=== PATIENT | female | born 1955 | race Caucasian/White ===

== ENCOUNTER 2022-03-25 08:42 | Observation (INO) ==
--- NOTE | 2022-03-25 08:51 | Emergency Department Note ---
Impression & Plan Multiple fractures of ribs of left side, Hemothorax on left Admit to general surgery ED Provider Note NAME: CARINA VOGEL AGE: 66 SEX: F ARRIVES VIA: Walk-In INFORMANT: Patient ED PROVIDER(S): Moraima Lane DO CHIEF COMPLAINT: Fall PLAN: Disposition: Admit to general surgery Condition: Stable MEDICAL DECISION MAKING: This is a 66-year-old female patient who fell 2 steps off of a stepladder onto a toilet bowl landing on her left lateral chest wall. The patient denies striking head or lose consciousness. She is complaining of left chest wall. Triage Nursing notes reviewed and agree with them. Vital Signs: reviewed and unremarkable Differential diagnosis: Rib fractures, chest wall contusion, pneumothorax ER treatment provided: IV fentanyl IV Zofran x2 IV Dilaudid x2 Diagnostics interpreted by me: ECG: None Cardiac Monitoring: None Laboratory studies: See below Imaging studies: As per radiology CT chest: See radiology report CT abdomen pelvis: See radiology report HPI: 66/F arrives for evaluation of fall. The patient presents to the emergency department complaining of left-sided chest wall pain after falling from a stepstool. She had climbed up 2 steps on a stepstool and fell onto her left chest wall landing on a toilet bowl. She did not strike her head or lose consciousness. She immediately felt severe pain in her left mid axillary line in the mid left chest wall and felt somewhat lightheaded. ROS: See above HPI for pertinent positives & negatives. A total of 10 systems reviewed and were otherwise negative. PAST MEDICAL HISTORY:Anxiety PAST SURGICAL HISTORY:Previous orthopedic surgery on her knee. FAMILY HISTORY:See Below SOCIAL HISTORY:Patient recently moved into this home HOME MEDICATIONS:Loratadine ALLERGIES:See Below VITALS:See Below PHYSICAL EXAMINATION: HEENT: Head - normocephalic and atraumatic. Pupils are equal, round, and reactive to light. Extraocular eye muscles are intact and sclera are anicteric. Nose - moist nasal mucosa without evidence of trauma or discharge. Mouth - moist buccal mucosa with no trauma to the teeth or signs of malocclusion. Neck: The neck is supple and there is no pain to palpation over the posterior cervical spine and no obvious step-offs or deformities. There is no JVD or tracheal deviation. Chest: There are no signs of deformities, contusions or abrasions to the chest wall. There is no obvious crepitus or paradoxical chest rise. The patient has exquisite tenderness to palpation in the left mid axillary line in the mid left chest. Heart: Regular, rate, and rhythm. There is a normal S1 and S2 with no murmurs, clicks, or gallops appreciated. Lungs: Clear to auscultation bilaterally with no wheezes, rales, or rhonchi. Abdomen: Soft, completely nontender, nondistended, with good bowel sounds. There is no sign of trauma such as contusions, abrasions or penetrations. There are no palpable pulsatile masses or hepatosplenomegaly. There is no guarding, rigidity, or rebound noted. Pelvis: Stable to rock and compression. Extremities: No obvious trauma, deformities, contusions, or edema. There are easily palpable peripheral pulses. Neuro: The patient is awake and alert and easily able to follow commands. Muscle strength is 5 out of 5 in all 4 extremities. Otherwise, neuro exam is unremarkable. Back: The entire thoracic, lumbar, and sacral spine were palpated. There are no obvious step-offs or deformities noted. There are no obvious signs of trauma such as contusions abrasions penetrations noted to the back. Skin: The patient does have some areas of redness over the right shoulder and right mid back which are skin lesions that are old. ED COURSE: Times/Reassessments: 0850: The patient was evaluated in room B2. A complete history and physical was performed. An IV lock was initiated and the patient was given a dose of IV fentanyl and IV Zofran. She will go for CT scan of her chest. I reviewed these findings with the patient. I discussed these findings with Dr. Linder from general surgery and he recommended CT scan of the abdomen/pelvis. She required additional pain medication and was given IV Dilaudid. She went back for CT scan of the abdomen/pelvis which was unremarkable. Dr. Linder will admit the patient to the hospital. O2 saturations remained stable. The patient again complained of discomfort in the left chest wall and was given additional doses of IV Dilaudid and IV Zofran. Moraima Lane DO Past Med/Surg History Medical History (Updated 03/26/22 @ 12:[address] DO) Hemothorax on left Multiple fractures of ribs of left side Social History Smoking Status: Never smoker Second Hand Exposure: No; Hx Alcohol Use: Yes Alcohol type: wine Hx Substance Use: No Preferred Language: Qatari Communication Ability: Effective Heel Brusher Required: No Beliefs That Will Affect Care: Mandaen Current Living Situation: Spouse Feels Safe at Home: Yes Assistive Devices: Glasses Allergies Allergies Allergy/AdvReac Type Severity Reaction Status Date / Time morphine AdvReac Vomiting Verified 03/25/22 15:53 Home Meds Previous Rx's Medication Instructions Recorded acetaminophen 325 mg tablet 650 mg PO Q6H #30 tabs 03/26/22 gabapentin 100 mg capsule 100 mg PO BID #60 caps 03/26/22 lidocaine 5 % topical patch 1 patch transdermal QAM #15 ea 03/26/22 oxycodone 5 mg tablet 5 mg PO Q4H PRN pain #15 tabs 03/26/22 Results & Data (ED) Vital Signs Vital Signs - 24 hr 03/25/22 14:00 03/25/22 14:27 Temperature 36.8 C 36.8 C Temperature Source Oral Oral Pulse Rate [Finger] 70 64 Pulse Rhythm [Finger] Regular Respiratory Rate 16 18 Blood Pressure [Right Arm] 133/82 144/76 H Blood Pressure Mean [Right Arm] 99 98 Pulse Oximetry 99 99 Laboratory Data Result diagrams: 03/26/22 05:54 03/26/22 05:54 Lab Results 03/25/22 03/25/22 03/25/22 Range/Units 09:34 10:52 11:26 WBC 7.96 (4.8-10.8) K/ul RBC 4.01 (3.93-5.22) M/uL Hgb 11.9 L (12.0-16.0) g/dl Hct 36.3 (34.1-44.9) % MCV 90.5 (80.0-100.0) fL MCH 29.7 (25.0-34.0) pg MCHC 32.8 (32.0-36.0) g/dL RDW Std Deviation 46.5 H (36.4-46.3) fL RDW Coeff of Cristian 13.9 (11.5-14.5) % Plt Count 225 (130-400) K/uL MPV 10.3 (9.4-12.3) fL Immature Gran % (Auto) 0.3 % Neut % (Auto) 79.5 % Lymph % (Auto) 13.1 % [place] % (Auto) 6.2 % Eos % (Auto) 0.5 % Baso % (Auto) 0.4 % Neut # (Auto) 6.34 (1.4-6.5) K/uL Lymph # (Auto) 1.04 L (1.2-3.4) K/uL [place] # (Auto) 0.49 (0.24-0.82) K/uL Eos # (Auto) 0.04 (0-0.50) K/uL Baso # (Auto) 0.03 (0-0.2) K/uL Immature Gran # (Auto) 0.02 (0.00-0.02) K/uL Urine Color Yellow Urine Appearance Clear (Clear) Urine pH 5.5 (4.5-7.5) Ur Specific [place] 1.022 (1.000-1.030) Urine Protein Negative (Negative) Urine Glucose (UA) Negative (Negative) Urine Ketones Negative (Negative) Urine Blood Negative (Negative) Urine Nitrite Negative (Negative) Urine Bilirubin Negative (Negative) Urine Urobilinogen Negative (Negative) Ur Leukocyte Esterase Negative (Negative) SARS-CoV-2, RNA, NAAT NEGATIVE (NEGATIVE) Administered Medications Discontinued Medications Acetaminophen (Acetaminophen 325 Mg Tab) 650 mg PO Q6H TABITHA Stop: 04/24/22 14:57 Last Admin: 03/26/22 08:05 Dose: 650 mg Documented By: Admin: 03/26/22 03:18 Dose: 650 mg Documented By: Admin: 03/25/22 19:36 Dose: 650 mg Documented By: Admin: 03/25/22 15:23 Dose: 650 mg Documented By: KEE Fentanyl Citrate (Fentanyl Citrate 100 Mcg/2 Ml Vial) 50 mcg IV NOW STA Stop: 03/25/22 09:06 Last Admin: 03/25/22 09:27 Dose: 50 mcg Documented By: ADILIA Gabapentin (Gabapentin 100 Mg Cap) 100 mg PO BID TABITHA Stop: 04/24/22 15:29 Last Admin: 03/26/22 08:05 Dose: 100 mg Documented By: Admin: 03/25/22 19:38 Dose: 100 mg Documented By: Admin: 03/25/22 16:20 Dose: 100 mg Documented By: KEE Hydromorphone HCl (Hydromorphone Inj 0.5 Mg/0.5 Ml Syr) 0.5 mg IV NOW STA Stop: 03/25/22 10:50 Last Admin: 03/25/22 10:57 Dose: 0.5 mg Documented By: ADILIA Hydromorphone HCl (Hydromorphone Inj 1 Mg/Ml Syringe) 1 mg IV NOW STA Stop: 03/25/22 12:15 Last Admin: 03/25/22 12:19 Dose: 1 mg Documented By: ADILIA Ioversol (Ioversol 350 Mg 100ml Prefilled Syringe) 94 ml IV ONCE ONE Stop: 03/25/22 09:46 Last Admin: 03/25/22 09:45 Dose: 94 ml Documented By: COURTNEY Ioversol (Ioversol 350 Mg 100ml Prefilled Syringe) 94 ml IV ONCE ONE Stop: 03/25/22 11:40 Last Admin: 03/25/22 11:39 Dose: 94 ml Documented By: COURTNEY(2) Ketorolac Tromethamine (Ketorolac Tromethamine 15 Mg/Ml Vial) 15 mg IV Q6H TABITHA Stop: 03/30/22 15:29 Last Admin: 03/26/22 08:06 Dose: 15 mg Documented By: Admin: 03/26/22 03:17 Dose: 15 mg Documented By: Admin: 03/25/22 21:33 Dose: 15 mg Documented By: Admin: 03/25/22 15:22 Dose: 15 mg Documented By: KEE Lidocaine (Lidocaine 5% 1 Patch) 1 patch TD QAM TABITHA Stop: 04/24/22 14:57 Last Admin: 03/26/22 08:07 Dose: 1 patch Documented By: Admin: 03/25/22 16:21 Dose: 1 patch Documented By: KEE Miscellaneous (Remove Lidoderm Patch) 1 each N/A DAILY@2100 TABITHA Stop: 04/24/22 20:59 Last Admin: 03/25/22 19:39 Dose: 1 each Documented By: SALVATORE Ondansetron HCl (Ondansetron Inj 2 Mg/Ml 2 Ml Vial) 4 mg IV NOW STA Stop: 03/25/22 09:06 Last Admin: 03/25/22 09:27 Dose: 4 mg Documented By: ADILIA Ondansetron HCl (Ondansetron Inj 2 Mg/Ml 2 Ml Vial) 4 mg IV NOW STA Stop: 03/25/22 12:39 Last Admin: 03/25/22 12:43 Dose: 4 mg Documented By: JEM Ondansetron HCl (Ondansetron Inj 2 Mg/Ml 2 Ml Vial) 4 mg IV Q4H PRN PRN Reason: Nausea And Vomiting Stop: 04/24/22 14:57 Last Admin: 03/25/22 15:22 Dose: 4 mg Documented By: KEE Discharge Plan Visit Data Chief Complaint: Chest/Rib Injury Stated Complaint: RIB PAIN ED Provider: Moraima Lane Discharge Problem: Multiple fractures of ribs of left side, Hemothorax on left Patient Disposition: Admitted As Inpatient Condition: Good Discharge Instructions Interventions: ED Discharge Assessment Last Done: 03/25/22 14:29 : Multiple fractures of ribs of left side Qualifiers: Encounter type: initial encounter Fracture type: closed Qualified Code(s): S22.42XA - Multiple fractures of ribs, left side, initial encounter for closed fracture
[2022-03-25] MEDS ORDERED: fentaNYL citrate 100 MCG/2 ML VIAL IV STA (09:05)
[2022-03-25] MEDS ORDERED: ONDANSETRON INJ 2 MG/ML 2 ML VIAL IV STA ×2 (09:05→12:38)
[2022-03-25] MEDS ORDERED: IOVERSOL 350 MG 100mL Prefilled Syringe IV ONE ×2 (09:45→11:39)
[2022-03-25 09:51] LABS: Appearance Urine Clear (Clear); Bilirubin Urine Negative (Negative); Blood Urine Negative (Negative); Color Urine Yellow; Glucose Urine UA Negative (Negative); Ketones Urine Negative (Negative); Leukocyte Esterase Urine Negative (Negative); Nitrite Urine Negative (Negative); Protein Urine Negative (Negative); Specific Gravity Urine 1.022 (1.000-1.030); Urobilinogen Urine Negative (Negative); pH Urine 5.5 (4.5-7.5)
--- NOTE | 2022-03-25 10:06 | CT Scan Report ---
CT SCAN OF THE CHEST WITH IV CONTRAST CLINICAL HISTORY: Fall. Left-sided chest wall injury. COMPARISON STUDY: No priors. TECHNIQUE: Following the IV administration of 94 cc of Optiray 350, CT scan of the thorax was perform ed from the thoracic inlet to the upper abdomen. Images are reviewed in the axial, sagittal, and mercedes nal planes. IV contrast was administered without complication. A dose lowering technique was utilize d adhering to the principles of ALARA. CT DOSE: 238.87 mGy.cm FINDINGS: Thyroid: Mildly enlarged and heterogeneous. Thoracic aorta: The thoracic aorta is normal in caliber and demonstrates standard 3-vessel arch anato my. No dissection is seen. Pulmonary vasculature: The pulmonary trunk is normal in caliber. There are no filling defects identif ied in the central pulmonary vessels to indicate pulmonary embolus. Note that this examination was no t protocoled for evaluation of the pulmonary arteries. Heart: The heart is top normal in size and without pericardial effusion. Lungs and pleural spaces: There is trace pneumothorax at the left lung base. No airspace consolidatio n or pneumothorax is seen. The trachea and central airways are clear. Dependent atelectasis is noted bilaterally. Mediastinum: There is no mediastinal lymphadenopathy. Hanny: Clear. Axillae: There are shotty axillary lymph nodes. Upper abdomen: Partially visualized upper abdominal viscera is within normal limits. Skeletal structures: The skeletal structures are osteopenic. There are acute left anterior 6th throug h 8th rib fractures. The 7th rib fracture is displaced. The remainder of the bony thorax appears inta ct. Mild spondylotic change is noted in the thoracic spine. Arthritic change is seen in the shoulders . No lytic or blastic bony lesions are seen. IMPRESSION: 1. There are acute left anterior rib fractures as above. 2. Trace hemothorax is seen at the left lung base. 3. There is no airspace consolidation or pneumothorax. 4. Additional findings as above. ACT 112: Negative or not required by law. Electronically signed by: Sam Olivo M.D. 03/25/2022 10:03 AM
[2022-03-25] MEDS ORDERED: HYDROmorphone INJ 0.5 MG/0.5 ML SYR IV STA (10:49)
[2022-03-25 10:59] LABS: Basophils # (auto) 0.03 K/uL (0-0.2); Basophils % (auto) 0.4 %; Eosinophils # (auto) 0.04 K/uL (0-0.50); Eosinophils % (auto) 0.5 %; Hematocrit (blood only) 36.3 % (34.1-44.9); Hemoglobin 11.9 g/dl (12.0-16.0); Immature Granulocytes # (auto) 0.02 K/uL (0.00-0.02); Immature Granulocytes % (auto) 0.3 %; Lymphocytes # (auto) 1.04 K/uL (1.2-3.4); Lymphocytes % (auto) 13.1 %; Mean Corpuscular Hemoglobin 29.7 pg (25.0-34.0); Mean Corpuscular Hgb Conc 32.8 g/dL (32.0-36.0); Mean Corpuscular Volume 90.5 fL (80.0-100.0); Mean Platelet Volume 10.3 fL (9.4-12.3); Monocytes # (auto) 0.49 K/uL (0.24-0.82); Monocytes % (auto) 6.2 %; Neutrophils # (auto) 6.34 K/uL (1.4-6.5); Neutrophils % (auto) 79.5 %; Platelet Count 225 K/uL (130-400); RDW Coefficient of Variation 13.9 % (11.5-14.5); RDW Standard Deviation 46.5 fL (36.4-46.3); Red Blood Count 4.01 M/uL (3.93-5.22); White Blood Count 7.96 K/ul (4.8-10.8)
--- NOTE | 2022-03-25 11:57 | CT Scan Report ---
CT SCAN OF THE ABDOMEN AND PELVIS WITH IV CONTRAST CLINICAL HISTORY: Fall. Left-sided chest injury. COMPARISON STUDY: Chest CT performed the same day 03/25/2022. TECHNIQUE: Following the IV administration of 94 cc of Optiray 350, CT scan of the abdomen and pelvi s is performed from the lung bases to the proximal femora. Images are reviewed in the axial, sagittal , and coronal planes. IV contrast was administered without complication. A dose lowering technique wa s utilized adhering to the principles of ALARA. CT DOSE: 311.66 mGy.cm FINDINGS: Lung bases: The heart is normal in size and without pericardial effusion. Trace hemothorax is noted a t the left lung base. There is no basilar consolidation or pneumothorax. Liver: The contrast-enhanced liver is normal in size, contour, and attenuation. There is no intrahepa tic biliary ductal dilatation. The hepatic veins and portal veins are patent. Gallbladder: Unremarkable. Spleen: Normal in size and attenuation. Pancreas: Unremarkable. Adrenal glands: Unremarkable. Kidneys: The contrast enhanced kidneys are normal in size and without hydronephrosis. The kidneys enh ance an excrete symmetrically. Contrast from today's earlier chest CT fills the renal collecting syst ems and ureters. 2 subcentimeter cortical hypodensities in the right kidney likely represent cysts bu t are too small for definitive characterization. Abdominal vasculature: The abdominal aorta is normal in course and caliber noting mild to moderate at herosclerotic calcification. Bowel: There is moderate diverticulosis of left colon without CT evidence of acute diverticulitis. No bowel obstruction is seen. The appendix is well-visualized and normal. Peritoneum: There is no intraperitoneal free air or abdominal ascites. Lymphadenopathy: None. Pelvic viscera: The bladder is filled with excreted IV contrast and otherwise normal as visualized. T he uterus is surgically absent. No adnexal lesion is seen. Skeletal structures: The skeletal structures are osteopenic. Again seen are acute left anterior 6th t hrough 8th rib fractures. The 7th rib fracture is displaced. The lumbosacral spine, bony pelvis, and proximal femora appear intact. There is mild lumbosacral spondylosis. No lytic or blastic lesions are seen. IMPRESSION: 1. There is no evidence of solid organ injury in the abdomen or pelvis. 2. Left anterior rib fractures are again noted and unchanged. 3. Trace hemothorax is again seen at the left lung base. There is no basilar pneumothorax. 4. Colonic diverticulosis without CT evidence of acute diverticulitis. 5. Additional findings as above. ACT 112: Negative or not required by law. Electronically signed by: Sam Olivo M.D. 03/25/2022 11:55 AM
[2022-03-25] MEDS ORDERED: HYDROmorphone INJ 1 MG/ML SYRINGE IV STA (12:14)
--- NOTE | 2022-03-25 12:44 | History & Physical Report ---
Date of Service March 25, 2022 Assessment & Plan (1) Multiple fractures of ribs of left side: Plan: 66-year-old female with left-sided rib fractures following a fall with no other evidence of injury. There is a trace hemothorax though I think this is quite minimal. We will admit for observation. Admit to [facility] with telemetry and continuous pulse ox for observation Scheduled Tylenol, scheduled Toradol IV, lidocaine patch, gabapentin As needed oxycodone and morphine Repeat chest x-ray in the morning I-S every hour If any worsening of her hemothorax or any requirement for plating of ribs or surgery, she would require transfer to the care of a thoracic surgeon Patient may ambulate, diet as tolerated Likely discharge tomorrow (2) Hemothorax on left: History of Present Illness Chief Complaint: Fall, chest pain Primary Care Provider: FAYE HOFFMAN 66-year-old otherwise healthy female recently moved to the area and was setting things up in her house when she fell off a stepladder and had her left lateral chest on the toilet. She is complaining of left-sided pain. No shortness of breath, though it does hurt to take a deep breath or to lay flat. Not on any blood thinners, no loss of consciousness, evaluated in the emergency department and CT scan revealed 3 left-sided rib fractures with trace hemothorax and no pneumothorax. CT abdomen pelvis showed no evidence of intra-abdominal injury. She is focally tender and has some bruising on her left side. Allergies Allergy/AdvReac Type Severity Reaction Status Date / Time No Known Allergies Allergy Unverified 03/25/22 09:13 Home Medications Medication Instructions Recorded Confirmed Type No Known Home Medications 03/25/22 03/25/22 History Past Med/Surg History Medical History (Updated 03/25/22 @ 12:41 by Prosper Linder DO, FACS) Hemothorax on left Multiple fractures of ribs of left side Social History Smoking Status: Never smoker Preferred Language: Danish Feels Safe at Home: Yes Review of Systems Review of Systems: All systems reviewed & are unremarkable except as noted in HPI & below Physical Exam Constitutional: WD/WN, vitals as above Respiratory: normal respiratory effort, lungs clear to auscultation no paradoxical chest wall movement Cardiovascular: RRR, no murmur, no edema Chest (Breasts): Chest: + abnormal inspection of chest (Tender to palpation left lower anterior chest, ecchymosis) Gastrointestinal (Abdomen): normal bowel sounds, soft, nontender, no hepatosplenomegaly Neurologic: PERRL, EOMI, accommodation nl, no face palsy, no dysarthria Results & Data Results & Data ([facility]) Vital Signs (Past 12 Hours) Vital Signs Temp Pulse Pulse Resp BP BP Pulse Ox 03/25/22 11:46 78 14 154/82 H 100 03/25/22 09:59 97 03/25/22 08:44 36.5 C 74 18 117/76 99 O2 Del Method 03/25/22 11:46 Room Air 03/25/22 09:59 Room Air 03/25/22 08:44 Laboratory Results Laboratory Results - last 24 hr 03/25/22 03/25/22 03/25/22 09:34 10:52 11:26 WBC 7.96 RBC 4.01 Hgb 11.9 L Hct 36.3 MCV 90.5 MCH 29.7 MCHC 32.8 RDW Std Deviation 46.5 H RDW Coeff of Cristian 13.9 Plt Count 225 MPV 10.3 Immature Gran % (Auto) 0.3 Neut % (Auto) 79.5 Lymph % (Auto) 13.1 Archer % (Auto) 6.2 Eos % (Auto) 0.5 Baso % (Auto) 0.4 Neut # (Auto) 6.34 Lymph # (Auto) 1.04 L Archer # (Auto) 0.49 Eos # (Auto) 0.04 Baso # (Auto) 0.03 Immature Gran # (Auto) 0.02 Urine Color Yellow Urine Appearance Clear Urine pH 5.5 Ur Specific [place] 1.022 Urine Protein Negative Urine Glucose (UA) Negative Urine Ketones Negative Urine Blood Negative Urine Nitrite Negative Urine Bilirubin Negative Urine Urobilinogen Negative Ur Leukocyte Esterase Negative SARS-CoV-2, RNA, NAAT NEGATIVE Diagnostic Findings I personally reviewed and interpreted the CT scan of the chest, abdomen, and pelvis myself. Agree with the assessment of left-sided rib fractures 6 through 8. 7 is slightly displaced. Very minimal trace hemothorax with no evidence of pneumothorax. ADDENDUM ADDENDUM: There is a transcriptional error in the body of the report under lungs and pleural spaces. There is no pneumothorax. Trace hemothorax is seen at the left lung base. Electronically signed by: Sam Olivo M.D. 03/25/2022 11:[address] SCAN OF THE CHEST WITH IV CONTRAST CLINICAL HISTORY: Fall. Left-sided chest wall injury. COMPARISON STUDY: No priors. TECHNIQUE: Following the IV administration of 94 cc of Optiray 350, CT scan of the thorax was performed from the thoracic inlet to the upper abdomen. Images are reviewed in the axial, sagittal, and coronal planes. IV contrast was administered without complication. A dose lowering technique was utilized adhering to the principles of ALARA. CT DOSE: 238.87 mGy.cm FINDINGS: Thyroid: Mildly enlarged and heterogeneous. Thoracic aorta: The thoracic aorta is normal in caliber and demonstrates standard 3-vessel arch anatomy. No dissection is seen. Pulmonary vasculature: The pulmonary trunk is normal in caliber. There are no filling defects identified in the central pulmonary vessels to indicate pulmonary embolus. Note that this examination was not protocoled for evaluation of the pulmonary arteries. Heart: The heart is top normal in size and without pericardial effusion. Lungs and pleural spaces: There is trace pneumothorax at the left lung base. No airspace consolidation or pneumothorax is seen. The trachea and central airways are clear. Dependent atelectasis is noted bilaterally. Mediastinum: There is no mediastinal lymphadenopathy. Hanny: Clear. Axillae: There are shotty axillary lymph nodes. Upper abdomen: Partially visualized upper abdominal viscera is within normal limits. Skeletal structures: The skeletal structures are osteopenic. There are acute left anterior 6th through 8th rib fractures. The 7th rib fracture is displaced. The remainder of the bony thorax appears intact. Mild spondylotic change is noted in the thoracic spine. Arthritic change is seen in the shoulders. No lytic or blastic bony lesions are seen. IMPRESSION: 1. There are acute left anterior rib fractures as above. 2. Trace hemothorax is seen at the left lung base. 3. There is no airspace consolidation or pneumothorax. 4. Additional findings as above. CT SCAN OF THE ABDOMEN AND PELVIS WITH IV CONTRAST CLINICAL HISTORY: Fall. Left-sided chest injury. COMPARISON STUDY: Chest CT performed the same day 03/25/2022. TECHNIQUE: Following the IV administration of 94 cc of Optiray 350, CT scan of the abdomen and pelvis is performed from the lung bases to the proximal femora. Images are reviewed in the axial, sagittal, and coronal planes. IV contrast was administered without complication. A dose lowering technique was utilized adhering to the principles of ALARA. CT DOSE: 311.66 mGy.cm FINDINGS: Lung bases: The heart is normal in size and without pericardial effusion. Trace hemothorax is noted at the left lung base. There is no basilar consolidation or pneumothorax. Liver: The contrast-enhanced liver is normal in size, contour, and attenuation. There is no intrahepatic biliary ductal dilatation. The hepatic veins and portal veins are patent. Gallbladder: Unremarkable. Spleen: Normal in size and attenuation. Pancreas: Unremarkable. Adrenal glands: Unremarkable. Kidneys: The contrast enhanced kidneys are normal in size and without hydronephrosis. The kidneys enhance an excrete symmetrically. Contrast from today's earlier chest CT fills the renal collecting systems and ureters. 2 subcentimeter cortical hypodensities in the right kidney likely represent cysts but are too small for definitive characterization. Abdominal vasculature: The abdominal aorta is normal in course and caliber noting mild to moderate atherosclerotic calcification. Bowel: There is moderate diverticulosis of left colon without CT evidence of acute diverticulitis. No bowel obstruction is seen. The appendix is well- visualized and normal. Peritoneum: There is no intraperitoneal free air or abdominal ascites. Lymphadenopathy: None. Pelvic viscera: The bladder is filled with excreted IV contrast and otherwise normal as visualized. The uterus is surgically absent. No adnexal lesion is seen. Skeletal structures: The skeletal structures are osteopenic. Again seen are acute left anterior 6th through 8th rib fractures. The 7th rib fracture is displaced. The lumbosacral spine, bony pelvis, and proximal femora appear intact. There is mild lumbosacral spondylosis. No lytic or blastic lesions are seen. IMPRESSION: 1. There is no evidence of solid organ injury in the abdomen or pelvis. 2. Left anterior rib fractures are again noted and unchanged. 3. Trace hemothorax is again seen at the left lung base. There is no basilar pneumothorax. 4. Colonic diverticulosis without CT evidence of acute diverticulitis. 5. Additional findings as above. PG Care Time/CCT Total # of Minutes Spent Total Time Spent with Patient: Total time spent is greater than 50% in coordination of care (as documented) at patient's floor/unit and/or counseling patient: Coding Level of Care Code INT OBSERVATION CARE 50M LVL 2 Diagnoses Multiple fractures of ribs of left side S22.42XA Hemothorax on left J94.2
[2022-03-25] MEDS ORDERED: MoRPHine SULFATE 2 MG/ML CARP IV PRN (14:58)
[2022-03-25] MEDS ORDERED: oxyCODONE HCL IR 5 MG TAB (IMMEDIATE RELEASE) PO PRN ×2 (14:58)
[2022-03-25] MEDS ORDERED: MoRPHine SULFATE 4 MG/ML 1 ML CARP\\VIAL IV PRN (14:58)
[2022-03-25] MEDS ORDERED: ONDANSETRON INJ 2 MG/ML 2 ML VIAL IV PRN (14:58)
[2022-03-25] MEDS ORDERED: diphenhydrAMINE 50 MG/ML VIAL IV PRN (14:58)
[2022-03-25] MEDS: KETOROLAC TROMETHAMINE 15 MG/ML VIAL IV SCH ×2 (15:22→21:33)
[2022-03-25] MEDS: ACETAMINOPHEN 325 MG TAB PO SCH ×2 (15:23→19:36)
[2022-03-25] MEDS ORDERED: HYDROmorphone INJ 0.5 MG/0.5 ML SYR IV PRN ×2 (15:38)
[2022-03-25] MEDS: GABAPENTIN 100 MG CAP PO SCH ×2 (16:20→19:38)
[2022-03-25] MEDS: LIDOCAINE 5% 1 PATCH TD SCH (16:21)
[2022-03-26] MEDS: KETOROLAC TROMETHAMINE 15 MG/ML VIAL IV SCH ×2 (03:17→08:06)
[2022-03-26] MEDS: ACETAMINOPHEN 325 MG TAB PO SCH ×2 (03:18→08:05)
--- NOTE | 2022-03-26 05:38 | Surgery Progress Note ---
Date of Service March 26, 2022 Assessment & Plan (1) Multiple fractures of ribs of left side: Plan: Continue analgesics Check a.m. labs when available Check a.m. checks x-ray when available Encourage use of incentive spirometry Mobilize as able Plan for discharge home if chest x-ray stable and pain can be adequately controlled with oral medications (2) Hemothorax on left: Admission and Anticipated Discharge Date Admission Date: March 25, 2022 Supervising Physician Co-Signing Physician Notes Patient seen and examined, labs and imaging reviewed, agree with above. s/p fall with rib fractures and trace hemothorax. Pain controlled overnight, never given IS. afvss, o2 sats good. left anterior lower chest wall with bruising, ttp. lungs ctap. cxr reviewed and no pneumothorax and trace hemothorax. d/c to home, f/u with cxr in 2 weeks. pain control, IS. return precautions given. If persistent clicking or pain may need thoracic referral. Subjective Patient is resting comfortably in bed. She currently denies any cough or shortness of breath. She notes her pain control is improved since admission. She does note she does have pain at the end of very deep inspiration. No fevers, shakes, or chills noted Physical Exam Respiratory: Lungs are clear to auscultation without rales, rhonchi, or wheezing. Chest wall tender to palpation on left side at site of rib fractures Results & Data ([facility]) Vital Signs (Past 12 Hours) Vital Signs Temp Pulse Pulse Resp BP Pulse Ox O2 Del Method 03/26/22 03:07 36.7 C 52 L 16 119/73 98 Room Air 03/26/22 00:00 67 03/25/22 22:57 36.7 C 61 16 126/73 97 Room Air 03/25/22 19:44 37.1 C 72 18 128/82 98 Room Air Diagnostic Findings XR chest 2V PA/lateral HISTORY: 66 years-old Female rib fracture, hemothorax acute chest trauma COMPARISON: Chest CT 03/25/2022 TECHNIQUE: PA and lateral views of the chest FINDINGS: Cardiomediastinal and hilar silhouettes are within normal limits. Acute left- sided rib fractures are better seen on the comparison chest CT. No pneumothorax, airspace consolidation or overt pulmonary edema. Trace left pleural effusion. Degenerative changes of the shoulders and spine. IMPRESSION: 1. Trace left pleural effusion without pneumothorax identified. 2. Acute left-sided rib fractures are better seen on the comparison chest CT. PG Care Time/CCT Total # of Minutes Spent Total Time Spent with Patient: Total time spent is greater than 50% in coordination of care (as documented) at patient's floor/unit and/or counseling patient: Coding Level of Care Code 13113 Subseq Hosp Care Lvl 1 Diagnoses Multiple fractures of ribs of left side S22.42XA Hemothorax on left J94.2
[2022-03-26 06:35] LABS: Basophils # (auto) 0.02 K/uL (0-0.2); Basophils % (auto) 0.7 %; Eosinophils # (auto) 0.05 K/uL (0-0.50); Eosinophils % (auto) 1.7 %; Hematocrit (blood only) 31.9 % (34.1-44.9); Hemoglobin 10.4 g/dl (12.0-16.0); Lymphocytes % (auto) 40.4 %; Mean Corpuscular Hemoglobin 29.5 pg (25.0-34.0); Mean Corpuscular Hgb Conc 32.6 g/dL (32.0-36.0); Mean Corpuscular Volume 90.6 fL (80.0-100.0); Mean Platelet Volume 10.6 fL (9.4-12.3); Monocytes % (auto) 13.5 %; Neutrophils % (auto) 43.7 %; Platelet Count 201 K/uL (130-400); RDW Coefficient of Variation 14.2 % (11.5-14.5); RDW Standard Deviation 47.1 fL (36.4-46.3); Red Blood Count 3.52 M/uL (3.93-5.22); White Blood Count 2.97 K/ul (4.8-10.8)
[2022-03-26 06:57] LABS: Albumin Globulin Ratio 1.6 (0.9-2); Albumin Level 3.6 gm/dl (3.4-5.0); BUN Creatinine Ratio 14.1 (10-20); Bilirubin,Total 0.7 mg/dl (0.2-1.0); Calcium 8.5 mg/dl (8.5-10.1); Creatinine Clr Calc Pharmacy 92.5 ml/min; Est GFR (African American) 103.6 ml/min; Est GFR (Non-African American) 89.4 ml/min; Globulin 2.3 gm/dl (2.5-4.0); Potassium 3.5 mmol/L (3.5-5.1); Total Protein 5.9 gm/dl (6.0-8.3)
[2022-03-26] MEDS: GABAPENTIN 100 MG CAP PO SCH (08:05)
[2022-03-26] MEDS: LIDOCAINE 5% 1 PATCH TD SCH (08:07)
--- NOTE | 2022-03-26 10:11 | XRay Report ---
XR chest 2V PA/lateral HISTORY: 66 years-old Female rib fracture, hemothorax acute chest trauma COMPARISON: Chest CT 03/25/2022 TECHNIQUE: PA and lateral views of the chest FINDINGS: Cardiomediastinal and hilar silhouettes are within normal limits. Acute left-sided rib fractures are better seen on the comparison chest CT. No pneumothorax, airspace consolidation or overt pulmonary ed ange. Trace left pleural effusion. Degenerative changes of the shoulders and spine. IMPRESSION: 1. Trace left pleural effusion without pneumothorax identified. 2. Acute left-sided rib fractures are better seen on the comparison chest CT. ACT 112: Negative or not required by law. The above report was generated using voice recognition software. It may contain grammatical, syntax o r spelling errors. Electronically signed by: Rocco Godfrey M.D. 03/26/2022 10:10 AM
== END 2022-03-26 11:27 | disposition home or self-care (01) ==
LOC: ED 08:42 → 2N 08:42
DX: S22.42XA Multiple fractures of ribs, left side, initial encounter for closed fracture; Z88.5 Allergy status to narcotic agent; S27.1XXA Traumatic hemothorax, initial encounter; Z79.899 Other long term (current) drug therapy; W11.XXXA Fall on and from ladder, initial encounter

== ENCOUNTER 2022-07-26 17:42 | Observation (INO) ==
--- NOTE | 2022-07-26 17:47 | ED Triage Note ---
Date of Service July 26, 2022 History of Present Illness This patient was briefly evaluated while in triage. An abbreviated physical exam was performed. This patient is a 67-year-old Female with past medical history of GERD and hyperlipidemia who presents to the ED for evaluation of chest pressure and p alpitations. She states she has a history of similar symptoms in the past, has had negative cardiac testing. Physical Exam VITALS: Vitals are noted on the nurse's note and reviewed by myself. GENERAL: This is a 67-year-old female, in no acute distress, well-developed well-nourished. HEART: Regular rate and rhythm without murmurs gallops or rubs. LUNGS: Clear to auscultation bilaterally without wheezes, rales or rhonchi. No retractions or accessory muscle use. NEURO: Patient was alert and oriented to person place and time. Initial orders for labs and / or imaging were placed and patient was placed in the waiting area until a bed is available. Please see further documentation for the full ED course. MDM / Impression Impression Impression: Chest pain : Chest pain Qualifiers: Chest pain type: unspecified Qualified Code(s): R07.9 - Chest pain, unspecified
[2022-07-26 18:17] LABS: Basophils # (auto) 0.02 K/uL (0-0.2); Basophils % (auto) 0.6 %; Eosinophils # (auto) 0.03 K/uL (0-0.50); Eosinophils % (auto) 0.8 %; Hematocrit (blood only) 36.2 % (37.0-47.0); Hemoglobin 12.3 g/dl (12.0-16.0); Lymphocytes # (auto) 1.64 K/uL (1.2-3.4); Lymphocytes % (auto) 46.5 %; Mean Corpuscular Hemoglobin 28.3 pg (25.0-34.0); Mean Corpuscular Volume 83.2 fL (80.0-100.0); Mean Platelet Volume 10.4 fL (9.4-12.4); Monocytes # (auto) 0.44 K/uL (0.11-0.59); Monocytes % (auto) 12.5 %; Neutrophils % (auto) 39.6 %; Platelet Count 236 K/uL (130-400); RDW Coefficient of Variation 12.4 % (11.5-14.5); RDW Standard Deviation 37.9 fL (36.4-46.3); Red Blood Count 4.35 M/uL (4.20-5.40); White Blood Count 3.53 K/ul (4.8-10.8)
--- NOTE | 2022-07-26 18:30 | XRay Report ---
XR chest 1V portable CLINICAL HISTORY: Chest pain, nonspecific COMPARISON STUDY: Chest CT March 25, 2022 and chest radiograph April 03, 2022. FINDINGS: Lung volumes are normal. Lungs are clear. There is no pneumothorax or pleural effusion. Car diac size is normal. Mediastinal contours are normal. There is no evidence for pulmonary edema. Sever al old left-sided rib fractures are noted. IMPRESSION: No acute cardiopulmonary findings. ACT 112: Negative or not required by law. Electronically signed by: Jose Mariano M.D. 07/26/2022 6:28 PM
[2022-07-26 18:36] LABS: Albumin Level 4.2 gm/dl (3.4-5.0); Bilirubin,Total 0.5 mg/dl (0.2-1.0); Calcium 9.9 mg/dl (8.5-10.1); Potassium 3.4 mmol/L (3.5-5.1)
[2022-07-26 18:42] LABS: Albumin Globulin Ratio 1.4 (0.9-2); BUN Creatinine Ratio 17.1 (10-20); Creatinine Clr Calc Pharmacy 90.7 ml/min; Est GFR (African American) 104.6 ml/min; Est GFR (Non-African American) 90.3 ml/min; Globulin 2.9 gm/dl (2.5-4.0); Total Protein 7.1 gm/dl (6.0-8.3)
[2022-07-26 18:46] LABS: Troponin I High Sensitivity 4.3 pg/ml (0-14)
[2022-07-26] MEDS ORDERED: NITROGLYCERIN SL 0.4 MG/TAB TAB SL STA ×2 (21:19→21:48)
[2022-07-26] MEDS ORDERED: ASPIRIN CHEW 324 MG PO STA (21:19)
[2022-07-26] MEDS ORDERED: SODIUM CHLORIDE 0.9% 1000ML 1,000 ML IV ONE (21:19)
[2022-07-26] MEDS ORDERED: OPTIRAY 320 500ml IV ONE (21:25)
--- NOTE | 2022-07-26 22:14 | Emergency Department Note ---
History of Present Illness General Chief Complaint: Chest Pain Stated Complaint: CHEST PAIN, HEART PALPITATIONS Time Seen by Provider: 07/26/22 20:27 History of Present Illness Provider Complaint: chest pain Time: 02:00 Duration: intermittent Onset: during rest and during exertion Pain Location: substernal and left chest Pain Radiation: none Severity: moderate Maximum Pain Intensity: 5 Quality: + heaviness Relieved By: + nothing Exacerbated By: + exertion Context: no recent illness, no recent surgery, no recent immobilization, no r ecent travel, no trauma/injury, no new medications or no history of DVT/PE Associated symptoms: + palpitations; no nausea, no diaphoresis, no dyspnea, no syncope, no fever, no cough or no leg swelling Home Medications Medication Instructions Recorded Confirmed Type ascorbic acid (vitamin C) 500 mg 500 mg PO DAILY 04/03/22 07/20/22 History tablet cholecalciferol (vitamin D3) 50 50 mcg PO DAILY 04/03/22 07/20/22 History mcg (2,000 unit) capsule loratadine 10 mg tablet 10 mg PO DAILY PRN allergies 04/03/22 07/26/22 History mecobalamin (vitamin B12) 5,000 mcg PO 04/03/22 07/20/22 History mcg disintegrating tablet multivitamin 1 tab PO DAILY 04/03/22 07/26/22 History triamcinolone acetonide 0.1 % 1 applic topical BID 07/26/22 07/26/22 History topical cream Allergies Allergy/AdvReac Type Severity Reaction Status Date / Time hydromorphone [From Dilaudid] Allergy Mild Nausea Verified 07/20/22 15:50 morphine AdvReac Vomiting Verified 07/20/22 15:50 Past Med/Surg History Medical History Hemothorax on left Lupus Multiple fractures of ribs of left side Subacute cutaneous lupus erythematosus Surgical History H/O colonoscopy H/O wrist surgery H/O: hysterectomy History of arthroscopic knee surgery History of delivery Family History Father Diabetes Denies family history of Ovarian cancer Prostate cancer Myocardial infarction Breast cancer Colorectal cancer Social History Smoking Status: Never smoker Second Hand Exposure: No; Hx Alcohol Use: Yes Alcohol type: wine Alcohol Intake Frequency: 4 or More x per/Week Hx Substance Use: No Preferred Language: [place] Communication Ability: Effective Pantry Attendant Required: No Beliefs That Will Affect Care: Jain marital status: Current Living Situation: Spouse current occupational status: retired How many Children do You have: 2 Feels Safe at Home: Yes during the past year weight has: decreased > 10 lbs Assistive Devices: Glasses Physical Exam Vital Signs Vital Signs - 24 hr 07/26/22 17:44 07/26/22 20:27 07/26/22 20:33 Temperature 36.7 C 37.0 C Temperature Source Temporal Artery Scan Oral Pulse Rate 109 H Pulse Rate [Right] 93 H Pulse Rhythm [Right] Regular Respiratory Rate 18 18 Respiratory Effort / Characteristics Non-Labored Spontaneous Respiratory Depth Normal Normal Respiratory Pattern Regular Blood Pressure 157/88 H Blood Pressure [Left Arm] 136/83 Blood Pressure Mean 111 Blood Pressure Mean [Left Arm] 100 Blood Pressure Position Sitting Blood Pressure Position [Left Arm] Sitting Pulse Oximetry 100 98 100 Oxygen Delivery Method Room Air Room Air Room Air Sepsis Recent Fever Within 48 Hours No Sepsis New/Unexplained Change in Mental Status No Sepsis Action Taken by Nursing No Action Required 07/26/22 20:33 07/26/22 21:52 Temperature Temperature Source Pulse Rate 95 H Pulse Rate [Right] 95 H Pulse Rhythm [Right] Respiratory Rate 19 19 Respiratory Effort / Characteristics Non-Labored Spontaneous Respiratory Depth Normal Respiratory Pattern Blood Pressure Blood Pressure [Left Arm] 147/78 H Blood Pressure Mean Blood Pressure Mean [Left Arm] 101 Blood Pressure Position Blood Pressure Position [Left Arm] Pulse Oximetry 99 99 Oxygen Delivery Method Room Air Room Air Sepsis Recent Fever Within 48 Hours Sepsis New/Unexplained Change in Mental Status Sepsis Action Taken by Nursing Physical Exam GENERAL: He is oriented to person, place, and time. He appears well-developed and well-nourished. HENT: Exam performed. - Head: Normocephalic and atraumatic. EYES: Conjunctivae and EOM are normal. Right eye exhibits no discharge. Left eye exhibits no discharge. No scleral icterus. NECK: Normal range of motion. Neck supple. No JVD present. CV: Normal rate, regular rhythm, normal heart sounds and intact distal pulses. There is no peripheral edema. Palpable radial pulses bue. PULM/CHEST: Effort normal and breath sounds normal. No respiratory distress. No stridor. He has no wheezes. He has no rales. ABD: The abdomen is soft. There is no tenderness. NEURO: Motor and sensation grossly intact. SKIN: Skin is warm and dry. He is not diaphoretic. PSYCH: He has a normal mood and affect. Behavior is normal. Judgment and thought content normal. Course Course 2026: The patient was evaluated in room B11A. A complete history and physical exam was performed Cardiac monitoring: An order was placed for continuous cardiac monitoring. The monitor shows a rate of 90 with sinus rhythm 2150: Vital signs stable. Patient reports that her chest pain has nearly resolved status post 1 sublingual nitroglycerin. Labs and imaging within normal limits. Patient has a moderate HEART score. [facility] out ACS. Dr. Lopez team notified. HEART Score for Major Cardiac Events from [employer]Ce[employer]hex on 07/26/2022 All calculations should be rechecked by clinician prior to use RESULT SUMMARY: 4 points Moderate Score (4-6 points) Risk of MACE of 12-16.6%. INPUTS: History > 1 = Moderately suspicious EKG > 0 = Normal Age > 2 = >=5 Risk factors > 1 = 1-2 risk factors Initial troponin > 0 = <=ormal limit Administered Medications Sodium Chloride (Nss 1000ml) 1,000 mls @ 999 mls/hr IV .Q1H1M ONE Stop: 07/26/22 22:19 Last Admin: 07/26/22 21:33 Dose: 999 mls/hr Documented By: JULIÁN Discontinued Medications Aspirin (Aspirin Chew 324 Mg) 324 mg PO NOW STA Stop: 07/26/22 21:20 Last Admin: 07/26/22 21:31 Dose: 324 mg Documented By: JULIÁN Ioversol (Optiray 320 500ml) 112 ml IV ONCE ONE Stop: 07/26/22 21:26 Last Admin: 07/26/22 21:25 Dose: 112 ml Documented By: ISREAL Nitroglycerin (Nitroglycerin Sl 0.4 Mg/Tab Tab) 0.4 mg SL NOW STA Stop: 07/26/22 21:20 Last Admin: 07/26/22 21:31 Dose: 0.4 mg Documented By: JULIÁN Nitroglycerin (Nitroglycerin Sl 0.4 Mg/Tab Tab) 0.4 mg SL NOW STA Stop: 07/26/22 21:49 Last Admin: 07/26/22 21:51 Dose: 0.4 mg Documented By: JULIÁN Medical Decision Making Laboratory Data Attestation: I reviewed the patient's lab results. 07/26/22 18:01 07/26/22 18:01 Labs: Lab Results 07/26/22 07/26/22 07/26/22 Range/Units 18: 18:01 20:37 WBC 3.53 L (4.8-10.8) K/ul RBC 4.35 (4.20-5.40) M/uL Hgb 12.3 (12.0-16.0) g/dl Hct 36.2 L (37.0-47.0) % MCV 83.2 (80.0-100.0) fL MCH 28.3 (25.0-34.0) pg MCHC 34.0 (32.0-36.0) g/dL RDW Std Deviation 37.9 (36.4-46.3) fL RDW Coeff of Cristian 12.4 (11.5-14.5) % Plt Count 236 (130-400) K/uL MPV 10.4 (9.4-12.4) fL Immature Gran % (Auto) 0.0 % Neut % (Auto) 39.6 % Lymph % (Auto) 46.5 % [place] % (Auto) 12.5 % Eos % (Auto) 0.8 % Baso % (Auto) 0.6 % Neut # (Auto) 1.40 (1.40-6.50) K/uL Lymph # (Auto) 1.64 (1.2-3.4) K/uL [place] # (Auto) 0.44 (0.11-0.59) K/uL Eos # (Auto) 0.03 (0-0.50) K/uL Baso # (Auto) 0.02 (0-0.2) K/uL Immature Gran # (Auto) 0.00 L (0.01-0.20) K/uL Sodium 140 (136-145) mmol/L Potassium 3.4 L (3.5-5.1) mmol/L Chloride 105 (98-107) mmol/L Carbon Dioxide 31 (21-32) mmol/L Anion Gap 4 (3-11) BUN 12 (6-23) mg/dl Creatinine 0.70 (0.6-1.2) mg/dl Est Cr Clr Drug Dosing 90.7 ml/min Est GFR ( Amer) 104.6 ml/min Est GFR (Non-Af Amer) 90.3 ml/min BUN/Creatinine Ratio 17.1 (10-20) Glucose 133 H (70-99(Fasting)) mg/dl Calcium 9.9 (8.5-10.1) mg/dl Total Bilirubin 0.5 (0.2-1.0) mg/dl AST 19 (13-39) U/L ALT 15 (7-52) U/L Alkaline Phosphatase 89 (34-104) U/L Troponin I High Sens 4.3 (0-14) pg/ml Total Protein 7.1 (6.0-8.3) gm/dl Albumin 4.2 (3.4-5.0) gm/dl Globulin 2.9 (2.5-4.0) gm/dl Albumin/Globulin Ratio 1.4 (0.9-2) Lipase 18 (11-82) U/L SARS-CoV-2, RNA, NAAT NEGATIVE (NEGATIVE) ECG Data Attestation: I personally reviewed and interpreted this ECG as follows: Indication: chest pain Rate (beats per minute): 105 Rhythm: sinus tachycardia Findings: + RBBB; no ST depression, no ST elevation or no prolonged QT MDM Narrative Vital signs stable. Patient reports that her chest pain has nearly resolved status post 1 sublingual nitroglycerin. Labs and imaging within normal limits. Patient has a moderate HEART score. [facility] rule out ACS. Dr. Lopez team notified. HEART Score for Major Cardiac Events from [employer] on 07/26/2022 All calculations should be rechecked by clinician prior to use RESULT SUMMARY: 4 points Moderate Score (4-6 points) Risk of MACE of 12-16.6%. INPUTS: History > 1 = Moderately suspicious EKG > 0 = Normal Age > 2 = >=5 Risk factors > 1 = 1-2 risk factors Initial troponin > 0 = <=ormal limit Impression & Plan Chest pain Discharge Plan Visit Data Chief Complaint: Chest Pain Stated Complaint: CHEST PAIN, HEART PALPITATIONS ED Provider: Eliecer Rios Discharge Problem: Chest pain Patient Disposition: Being Evaluated by Hospitalist Forms Stand Alone Forms: [facility] Prescriptions Prescriptions: No Action loratadine 10 mg tablet 10 mg PO DAILY PRN (Reason: allergies) multivitamin Tablet 1 tab PO DAILY ascorbic acid (vitamin C) 500 mg tablet 500 mg PO DAILY cholecalciferol (vitamin D3) 50 mcg (2,000 unit) capsule 50 mcg PO DAILY mecobalamin (vitamin B12) 5,000 mcg tablet,disintegrating PO triamcinolone acetonide 0.1 % cream 1 applic TOPICAL BID Rx Instructions: apply a thin layer to affected area twice a day Referrals Referrals: Ankur Deluna MD [Primary Care Provider] -
--- NOTE | 2022-07-26 22:33 | History & Physical Report ---
Date of Service July 26, 2022 Assessment & Plan (1) Chest pain: Plan: This is a 67-year-old female with a history of cutaneous SLE, GERD, hypercholesteremia who presented to [facility] for evaluation of chest pain. Chest Pain - Acute-onset but persistent and orn-eigsiqtxkqbe-lmuygba chest pressure similar to previous GERD flares that began morning of admission - Work-up as follows: - Admission hs-Trop at 4.3 --> repeat pending - CTA Chest (STAT RAD): No dissection, PE, pericardial process - ECG without conduction abnormalities - Physical exam: Mild TTP along the LEFT ribs (h/o rib fracture in April) - HEART Score: 3 (age, HLD as RF) -- low risk of MACE - Reported negative exercise stress test in 2019 - Based on the w/u described above, chest pain seems noncardiac in nature. Strongly suspect this is related to her underlying and known dyspepsia/GERD and possibly a component of esophageal spasms. No e/o PE, AoD on imaging. - A1c and lipid profile to be run in the AM - Dyspepsia regimen: Maalox, Famotidine 40mg daily TABITHA ; avoid PPIs until seen by Radiology Technician given ongoing concern for relation to her cutaneous lupus - Recommend repeat EGD as outpatient and establishing w/ GI given refractory GERD symptoms, consideration of esophageal manometry (2) Subacute cutaneous lupus erythematosus: Plan: Cutaneous Lupus - Active flare appreciated on exam. Biopsy confirmed, per patient. - Not on maintenance medications. Recommended establishing with Dermatology as outpatient - Hold PPIs out of concern for relationship to flare (3) GERD (gastroesophageal reflux disease): Plan: GERD - See above. Recommend repeat EGD and establishing with GI as outpatient - Famotidine 40mg daily, Maalox PRN Plan Code: Full Diet: Regular PPX: SCDs Dispo: MST History of Present Illness Primary Care Provider: Ankur Deluna MD This is a 67-year-old female with a history of cutaneous SLE, GERD, hypercholesteremia who presented to [facility] for evaluation of chest pain. Patient says that she has a longstanding history of GERD and normally it presents with reflux and chest pressure; however, it is normally relieved with drinking a small amount of water. She says that she has been off her PPIs at the direction of her PCP through the holidayswhere she endorses eating a lot more foods that typically precipitate her GERD. She restarted her Protonix at the end of May/beginning of June, however had a flare of her cutaneous lupuswhich is still ongoing. She has intermittently tried taking Pepcid, but has not been doing so consistently. She says that she woke up the morning of admission with substernal chest pressure, "like somebody was sitting on my chest. "She said it radiated towards both the left and right side. She went to go on her normal walk, which did not make the pain worse. She did notice however that her heart rate was quite fast. She endorsed feeling some palpitations, but mostly realized that by looking at her smart watch. As the day went on, the pressure did not get better. Out of concern for something cardiac in nature, she did report to the ED for further evaluation. She is physically active and does not get chest pain with walking around. She denies any smoking history. She is not on any other meds then an occasional Pepsid. She tells me that she has been extensively worked up for the chest discomfort in the past when she was living in [place] before it was definitively called GERD relatedshblanca says that she had a stress test around 2019 which was negative. She said her last EGD was in 2017. In the ER, patient was found to be mildly hypertensive at 140/80, heart rate 95. Saturating well on room air. Admission labs revealing leukopenia 3.5. Chemistries demonstrating mild hypokalemia 3.4. Her high-sensitivity troponin returned at 4.3. Her CTA Chest (STAT-Rad read) did NOT demonstrate, per radiologist, aortopathy, PE, or pericardial process. Her ECG did not demonstrate acute repolarization abnormalities. Allergies Allergy/AdvReac Type Severity Reaction Status Date / Time hydromorphone [From Dilaudid] Allergy Mild Nausea Verified 07/26/22 22:38 pantoprazole [From Protonix] Allergy Rash Verified 07/26/22 22:38 morphine AdvReac Vomiting Verified 07/26/22 22:38 Home Medications Medication Instructions Recorded Confirmed Type ascorbic acid (vitamin C) 500 mg 500 mg PO DAILY 04/03/22 07/26/22 History tablet cholecalciferol (vitamin D3) 50 50 mcg PO DAILY 04/03/22 07/26/22 History mcg (2,000 unit) capsule loratadine 10 mg tablet 10 mg PO DAILY PRN allergies 04/03/22 07/26/22 History mecobalamin (vitamin B12) 5,000 5,000 mcg PO DAILY 04/03/22 07/26/22 History mcg disintegrating tablet multivitamin 1 tab PO DAILY 04/03/22 07/26/22 History triamcinolone acetonide 0.1 % 1 applic topical BID 07/26/22 07/26/22 History topical cream Past Med/Surg History Medical History Hemothorax on left Lupus Multiple fractures of ribs of left side Subacute cutaneous lupus erythematosus Surgical History H/O colonoscopy H/O wrist surgery H/O: hysterectomy History of arthroscopic knee surgery History of delivery Family History Father Diabetes Denies family history of Ovarian cancer Prostate cancer Myocardial infarction Breast cancer Colorectal cancer Social History Smoking Status: Never smoker Second Hand Exposure: No; Hx Alcohol Use: Yes Alcohol type: beer and wine Alcohol Intake Frequency: 4 or More x per/Week Hx Substance Use: No Preferred Language: Turkish Communication Ability: Effective Food Service Steward Required: No Beliefs That Will Affect Care: None marital status: Current Living Situation: Spouse current occupational status: retired How many Children do You have: 2 Feels Safe at Home: Yes during the past year weight has: decreased > 10 lbs Assistive Devices: None Review of Systems Review of Systems: as per HPI Physical Exam Physical Exam: General: 67-year old female who is alert, oriented, and appears in no acute distress. HEENT: NCAT. - Eyes - Sclera are white, anicteric, and without injection. - Mouth - MMM - Neck - supple, no appreciable JVD Cardiac: Normal rate and regular rhythm; S1 and S2 present with no murmurs, rubs, or gallops. Pulmonary: Good respiratory effort with symmetric expansion of the chest. No use of accessory muscles. Lungs were clear to auscultation bilaterally with no crackles or wheezes. Abdominal: Normoactive bowel sounds. Abdomen was soft, nondistended, and non- tender to palpation. Extremities: Upper and lower extremities are warm and well perfused. No peripheral edema in the lower extremities bilaterally Psych: Well-developed, well-nourished, appropriately dressed for occasion. Behavior is cooperative and appropriate. Affect is WNL. Insight is appropriate. Results & Data Results & Data ([facility]) Vital Signs (Past 12 Hours) Vital Signs Temp Pulse Pulse Resp BP BP Pulse Ox 07/26/22 21:52 95 H 19 147/78 H 99 07/26/22 20:33 95 H 19 99 07/26/22 20:33 100 07/26/22 20:27 37.0 C 93 H 18 136/83 98 07/26/22 17:44 36.7 C 109 H 18 157/88 H 100 O2 Del Method 07/26/22 21:52 Room Air 07/26/22 20:33 Room Air 07/26/22 20:33 Room Air 07/26/22 20:27 Room Air 07/26/22 17:44 Room Air Supervising Physician Co-Signing Physician Notes Attending addendum: I have supervised the medical residents activities, and agree with the H&P unless as otherwise noted. Assessment and Plan: Chest pain of uncertain etiology- The patient will be admitted to telemetry for serial cardiac enzymes, serial EKG's, cardiac rhythm monitoring and a 2-D echocardiogram with Dopplers. Initial troponin negative at 4.3 with repeat pending CTA chest negative for PE EKG with no acute ST-T changes If negative cardiac work-up, may need to pursue more aggressive GI work-up such as EGD Continue Maalox, famotidine as noted, with avoidance of PPIs Cutaneous lupus- To establish with dermatology as outpatient Remaining orders and notations as noted Resident Activity Tracking Resident Involvement: Resident Care Provided Care Provided: Adult Hospital Medicine (1) Chest pain Chest pain type: unspecified Qualified Code(s): R07.9 - Chest pain, unspecified
[2022-07-26] MEDS ORDERED: ALUMINUM/MAGNESIUM SUSP 30 ML UDC PO STA (23:14)
[2022-07-26] MEDS ORDERED: ALUMINUM/MAGNESIUM SUSP 30 ML UDC PO PRN (23:21)
[2022-07-27 04:57] LABS: Hematocrit (blood only) 34.9 % (37.0-47.0); Hemoglobin 11.7 g/dl (12.0-16.0); Mean Corpuscular Hemoglobin 28.2 pg (25.0-34.0); Mean Corpuscular Hgb Conc 33.5 g/dL (32.0-36.0); Mean Corpuscular Volume 84.1 fL (80.0-100.0); Mean Platelet Volume 10.3 fL (9.4-12.4); Platelet Count 214 K/uL (130-400); RDW Coefficient of Variation 12.7 % (11.5-14.5); RDW Standard Deviation 38.6 fL (36.4-46.3); Red Blood Count 4.15 M/uL (4.20-5.40); White Blood Count 2.53 K/ul (4.8-10.8)
[2022-07-27 05:19] LABS: BUN Creatinine Ratio 16.4 (10-20); Calcium 9.6 mg/dl (8.5-10.1); Chol HDL Ratio 3.7 (0-5); Creatinine Clr Calc Pharmacy 94.8 ml/min; Est GFR (African American) 106.2 ml/min; Est GFR (Non-African American) 91.6 ml/min
[2022-07-27 06:30] LABS: Basophils # (auto) 0.01 K/uL (0-0.2); Basophils % (auto) 0.4 %; Eosinophils # (auto) 0.05 K/uL (0-0.50); Lymphocytes # (auto) 1.22 K/uL (1.2-3.4); Lymphocytes % (auto) 48.2 %; Monocytes # (auto) 0.43 K/uL (0.11-0.59); Neutrophils # (auto) 0.82 K/uL (1.40-6.50); Neutrophils % (auto) 32.4 %
--- NOTE | 2022-07-27 08:33 | CT Scan Report ---
CT ANGIOGRAM OF THE CHEST CLINICAL HISTORY: Atypical chest pain. COMPARISON STUDY: Chest CT dated 03/25/2022. Chest x-ray dated 07/26/2022. TECHNIQUE: Following the IV administration of 112 cc of Optiray 320, CT angiogram of the chest was pe rformed from the upper abdomen to the thoracic inlet utilizing the pulmonary embolus protocol. Images are reviewed in the axial, sagittal, and coronal planes. 3-D MIPS images are created and assessed. I V contrast was administered without complication. A dose lowering technique was utilized adhering to the principles of ALARA. CT DOSE: 291.54 mGy.cm FINDINGS: Thyroid: Imaged portions of the thyroid gland are normal in size and attenuation. Thoracic aorta: The thoracic aorta is normal in caliber and demonstrates standard 3-vessel arch anato my. No dissection is seen. Pulmonary vasculature: The pulmonary trunk is normal in caliber. There are no filling defects identif ied in main, lobar, or segmental pulmonary branches to suggest pulmonary embolus. Heart: The heart is normal in size and without pericardial effusion. Lungs and pleural spaces: There is no airspace consolidation or pleural effusion. Dependent atelectas is is seen at the lung bases. The trachea and central airways are clear. Mediastinum: There is no mediastinal lymphadenopathy. Hanny: Clear. Axillae: Shotty axillary lymph nodes are seen bilaterally and measure up to 1.5 cm. Upper abdomen: Partially visualized upper abdominal viscera is within normal limits. Skeletal structures: The skeletal structures are osteopenic. Mild degenerative change is noted in the shoulders and thoracic spine. No lytic or blastic bony lesions are seen. There are subacute/healing left anterior rib fractures. IMPRESSION: 1. There is no evidence of pulmonary embolus in the main, lobar, or segmental pulmonary arteries. 2. There is no airspace consolidation or pleural effusion. 3. Additional findings as above ACT 112: Negative or not required by law. Electronically signed by: Sam Olivo M.D. 07/27/2022 8:32 AM
[2022-07-27] MEDS: FAMOTIDINE 40 MG TABLET PO SCH (09:18)
[2022-07-27 09:41] LABS: Estimated Average Glucose 120 mg/dl; Hemoglobin A1C 5.8 % (4.5-5.6)
[2022-07-27 12:33] LABS: Basophils # (auto) 0.01 K/uL (0-0.2); Basophils % (auto) 0.3 %; Eosinophils # (auto) 0.05 K/uL (0-0.50); Eosinophils % (auto) 1.5 %; Hematocrit (blood only) 33.6 % (37.0-47.0); Hemoglobin 11.3 g/dl (12.0-16.0); Lymphocytes # (auto) 1.27 K/uL (1.2-3.4); Mean Corpuscular Hemoglobin 28.7 pg (25.0-34.0); Mean Corpuscular Hgb Conc 33.6 g/dL (32.0-36.0); Mean Corpuscular Volume 85.3 fL (80.0-100.0); Mean Platelet Volume 10.6 fL (9.4-12.4); Monocytes # (auto) 0.46 K/uL (0.11-0.59); Monocytes % (auto) 14.1 %; Neutrophils # (auto) 1.47 K/uL (1.40-6.50); Neutrophils % (auto) 45.1 %; Platelet Count 204 K/uL (130-400); RDW Coefficient of Variation 12.8 % (11.5-14.5); RDW Standard Deviation 39.6 fL (36.4-46.3); Red Blood Count 3.94 M/uL (4.20-5.40); White Blood Count 3.26 K/ul (4.8-10.8)
--- NOTE | 2022-07-27 14:04 | Electrocardiogram Report ---
Test Reason : Blood Pressure : / mmHG Vent. Rate : 105 BPM Atrial Rate : 105 BPM P-R Int : 192 ms QRS Dur : 100 ms QT Int : 342 ms P-R-T Axes : 077 063 065 degrees QTc Int : 452 ms Sinus tachycardia Incomplete right bundle branch block Borderline ECG No previous ECGs available Confirmed by Alonso Ramsay ([id number]) on 07/27/2022 2:04:04 PM Referred By: REFERRED SELF Confirmed By:Alonso Ramsay
--- NOTE | 2022-07-27 16:27 | Cardiology Consultation ---
Date of Consultation July 27, 2022 Assessment & Plan (1) Chest pain: -symptoms are not cardiac in origin. -suspect GI chest discomfort from reflux esophagitis. -she has never experienced exertional angina pectoris under 3 mi daily walk. -consider outpatient stress echocardiogram. -stable for hospital discharge. (2) Hypercholesterolemia: -LDL cholesterol 118, HDL of 49. -acceptable levels, but would continue to follow. History of Present Illness Attending Physician: Richard Vieira MD History of Present Illness Mrs. Guevara is a 67-year-old female admitted yesterday with a chest pain syndrome. This consultation was ordered to assist in her cardiac management. The patient was in her usual state of health until the security systems administrator hours of the day of presentation. She awoke with her typical reflux symptoms, set up, took a drink of water which typically improves her symptoms. This was not effective, and therefore, she administered a Pepcid. After several hours, she was to experience and symptoms, therefore, presented to the emergency room for further care. The patient has not been taking her usual Protonix as this causes a flare of her cutaneous lupus. She has been trying to control her reflux symptoms with Pepcid. There were no other associated symptoms with her discomfort such as shortness of breath, nausea, vomiting, or diaphoresis. The patient lead typically walks 3 miles daily for exercise. She has never experienced exertional angina pectoris or limiting dyspnea. She further denies syncope, presyncope, PND, orthopnea, palpitations, lower extremity edema, and claudication. Currently, patient is resting comfortably in bed and without complaints. We have discussed hospital discharge an outpatient stress testing. Past medical and surgical history 1. Hypercholesterolemia 2. GERD 3. Cutaneous lupus 4. Hysterectomy 5. Social history and lives with her Just relocated from [place], [place] No tobacco Occasional alcohol Family history No early coronary artery disease Review of systems A 10 review systems was undertaken and negative except for that described above. Allergies Allergy/AdvReac Type Severity Reaction Status Date / Time hydromorphone [From Dilaudid] Allergy Mild Nausea Verified 07/26/22 22:38 pantoprazole [From Protonix] Allergy Rash Verified 07/26/22 22:38 morphine AdvReac Vomiting Verified 07/26/22 22:38 Home Medications Medication Instructions Recorded Confirmed Type ascorbic acid (vitamin C) 500 mg 500 mg PO DAILY 10/10/22 02/01/23 History tablet cholecalciferol (vitamin D3) 50 50 mcg PO DAILY 04/03/22 07/26/22 History mcg (2,000 unit) capsule loratadine 10 mg tablet 10 mg PO DAILY PRN allergies 04/03/22 07/26/22 History mecobalamin (vitamin B12) 5,000 5,000 mcg PO DAILY 04/03/22 07/26/22 History mcg disintegrating tablet multivitamin 1 tab PO DAILY 04/03/22 07/26/22 History triamcinolone acetonide 0.1 % 1 applic topical BID 07/26/22 07/26/22 History topical cream Patient History Medical History Hemothorax on left Lupus Multiple fractures of ribs of left side Subacute cutaneous lupus erythematosus Surgical History H/O colonoscopy H/O wrist surgery H/O: hysterectomy History of arthroscopic knee surgery History of delivery Family History Father Diabetes Denies family history of Ovarian cancer Prostate cancer Myocardial infarction Breast cancer Colorectal cancer Social History Smoking Status: Never smoker Second Hand Exposure: No; Do You Dip or Chew Tobacco: No; Hx Alcohol Use: Yes Alcohol type: beer and wine Alcohol Intake Frequency: 4 or More x per/Week Hx Substance Use: No Preferred Language: Danish Communication Ability: Effective Casing Trimmer Required: No Beliefs That Will Affect Care: None marital status: Current Living Situation: Spouse current occupational status: retired How many Children do You have: 2 Feels Safe at Home: Yes Safety Concerns: Feels Safe At This Time during the past year weight has: decreased > 10 lbs Assistive Devices: None Physical Exam Physical Exam: In general this is a well-developed well-nourished white female in no acute distress. HEENT exam is negative. Neck is supple with full carotid upstrokes. There are no carotid bruits. Jugular venous pressure is flat at 90. There is no thyromegaly. Cardiovascular exam reveals a regular rhythm with a normal S1 and S2. No S3, S4, or murmurs are noted. Lungs are clear without rales, rhonchi, or wheezes. Abdomen is soft and nontender without bruits. Extremities reveal intact radial artery and posterior tibial pulses bilaterally. There is no peripheral edema. Results & Data ([facility]) Vital Signs (Past 12 Hours) Vital Signs Pulse Resp BP Pulse Ox O2 Del Method 07/27/22 13:00 83 18 130/75 99 Room Air 07/27/22 12:30 81 20 121/64 97 Room Air 07/27/22 12:00 81 16 124/73 98 Room Air 07/27/22 11:37 85 21 130/73 98 Room Air 07/27/22 11:30 85 17 132/71 98 07/27/22 11:00 84 19 132/83 98 Room Air 07/27/22 10:30 80 17 125/69 97 Room Air 07/27/22 10:00 83 21 128/72 96 Room Air 07/27/22 09:30 97 H 23 136/56 L 96 Room Air 07/27/22 09:00 84 24 118/94 97 Room Air 07/27/22 08:30 78 19 117/74 96 Room Air 07/27/22 08:00 77 12 125/70 99 Room Air 07/27/22 07:30 90 16 122/77 07/27/22 07:00 71 20 117/65 98 07/27/22 06:30 74 16 117/59 L 99 Room Air 07/27/22 06:00 75 15 111/66 100 Room Air 07/27/22 05:30 72 14 105/61 99 Room Air 07/27/22 05:00 75 17 130/67 100 Room Air 07/27/22 04:30 69 14 104/64 97 Room Air Laboratory Results CBC notes hemoglobin of 11.3, crit 33.6, white count 3.26, and platelet count [id number]. Electrolytes note a sodium of 143, potassium 4.0, chloride 109, bicarb 31, BUN 11, creatinine 0.67, glucose of 120. Initial high sensitivity troponin was 4.3 with a follow-up value 4.2. Diagnostic Findings EKG notes sinus tachycardia and a right-sided conduction delay. Chest x-ray shows no acute disease. CT scan of the chest noted no pulmonary embolism or aortic dissection. PG Care Time/CCT Total # of Minutes Spent Total Time Spent with Patient: Total time spent is greater than 50% in coordination of care (as documented) at patient's floor/unit and/or counseling patient: Coding Level of Care Code 39629 INT INP/OBS CARE MIN Diagnoses Chest pain R07.9 Chest pain type: unspecified Hypercholesterolemia E78.00 (1) Chest pain Chest pain type: unspecified Qualified Code(s): R07.9 - Chest pain, unspecified
[2022-07-27 19:55] LABS: Troponin I High Sensitivity 3.8 pg/ml (0-14)
--- NOTE | 2022-07-27 23:49 | Hospitalist Progress Note ---
Date of Service July 27, 2022 Assessment & Plan (1) Chest pain: Plan: (1) Chest pain: Plan: This is a 67-year-old female with a history of cutaneous SLE, GERD, hypercholesteremia who presented to [facility] for evaluation of chest pain. Chest Pain - Acute-onset but persistent and jeu-prtwqrqbgjri-rxuetax chest pressure similar to previous GERD flares that began morning of admission - Work-up as follows: - Admission hs-Trop at 4.3 --> repeat pending - CTA Chest (STAT RAD): No dissection, PE, pericardial process - ECG without conduction abnormalities - Physical exam: Mild TTP along the LEFT ribs (h/o rib fracture in April) - HEART Score: 3 (age, HLD as RF) -- low risk of MACE -Reportednegative exercise stress test in 2018 - Based on the w/u described above, chest pain seems noncardiac in nature. Strongly suspect this is related to her underlying and known dyspepsia/GERD and possibly a component of esophageal spasms. No e/o PE, AoD on imaging. - A1c and lipid profile to be run in the AM - Dyspepsia regimen: Maalox, Famotidine 40mg daily TABITHA ; avoid PPIs until seen by [employer] Lay[employer] Line Core Feeder given ongoing concern for relation to her cutaneous lupus - Recommend repeat EGD as outpatient and establishing w/ GI given refractory GERD symptoms, consideration of esophageal manometry (2) Subacute cutaneous lupus erythematosus: Plan: Cutaneous Lupus - Active flare appreciated on exam. Biopsy confirmed, per patient. - Not on maintenance medications. Recommended establishing with Dermatology as outpatient - Hold PPIs out of concern for relationship to flare (3) GERD (gastroesophageal reflux disease): Plan: GERD - See above. Recommend repeat EGD and establishing with GI as outpatient - Famotidine 40mg daily, Maalox PRN (2) Subacute cutaneous lupus erythematosus: (3) GERD (gastroesophageal reflux disease): (4) Hypercholesterolemia: Admission and Anticipated Discharge Date Admission Date: July 26, 2022 Subjective Patient reports improvement in her chest pain She is over concerned about episode of tachycardia and recurrence of chest pain Physical Exam Physical Exam: Head and ENT no thyroid enlargement trachea midline Cardiovascular S1-S2 are normal no S3 Lungs bilateral air entry fair no wheezing Abdomen soft nondistended positive bowel sounds no rebound tenderness Extremity shows trace edema Neurologically no focal deficits Skin shows no rash no cyanosis Results & Data Results & Data ([facility]) Vital Signs (Past 12 Hours) Vital Signs Temp Pulse Pulse Resp BP BP Pulse Ox 07/27/22 23:44 78 07/27/22 22:44 36.4 C L 76 18 96/59 L 93 07/27/22 19:17 36.6 C 74 18 129/73 98 07/27/22 16:41 89 07/27/22 16:40 07/27/22 16:44 36.9 C 84 18 139/87 98 07/27/22 13:00 83 18 130/75 99 07/27/22 12:30 81 20 121/64 97 07/27/22 12:00 81 16 124/73 98 O2 Del Method 07/27/22 23:44 07/27/22 22:44 Room Air 07/27/22 19:17 Room Air 07/27/22 16:41 07/27/22 16:40 Room Air 07/27/22 16:44 Room Air 07/27/22 13:00 Room Air 07/27/22 12:30 Room Air 07/27/22 12:00 Room Air Laboratory Results Short CBC 07/27/22 07/27/22 Range/Units 04:39 12:07 WBC 2.53 L 3.26 L (4.8-10.8) K/ul Hgb 11.7 L 11.3 L (12.0-16.0) g/dl Hct 34.9 L 33.6 L (37.0-47.0) % Plt Count 214 204 (130-400) K/uL BMP 07/27/22 04:39 Sodium 143 Potassium 4.0 Chloride 109 H Carbon Dioxide 31 BUN 11 Creatinine 0.67 Glucose 95 Calcium 9.6 PG Care Time/CCT Total # of Minutes Spent Total Time Spent with Patient: Total time spent is greater than 50% in coordination of care (as documented) at patient's floor/unit and/or counseling patient: Coding Level of Care Code 62944 SUB INP/OBS CARE 07/19MIN Diagnoses Chest pain R07.9 Chest pain type: unspecified Subacute cutaneous lupus erythematosus L93.1 GERD (gastroesophageal reflux disease) K21.9 Hypercholesterolemia E78.00 (1) Chest pain Chest pain type: unspecified Qualified Code(s): R07.9 - Chest pain, unspecified
--- NOTE | 2022-07-28 03:03 | Billing Data ---
Date of Service July 28, 2022 Coding Level of Care Code 12102 INT INP/OBS CARE
[2022-07-28 08:30] LABS: Hematocrit (blood only) 38.6 % (37.0-47.0); Hemoglobin 12.6 g/dl (12.0-16.0); Mean Corpuscular Hemoglobin 28.1 pg (25.0-34.0); Mean Corpuscular Hgb Conc 32.6 g/dL (32.0-36.0); Mean Platelet Volume 10.5 fL (9.4-12.4); Platelet Count 223 K/uL (130-400); RDW Coefficient of Variation 12.7 % (11.5-14.5); RDW Standard Deviation 39.5 fL (36.4-46.3); Red Blood Count 4.49 M/uL (4.20-5.40); White Blood Count 3.02 K/ul (4.8-10.8)
[2022-07-28 09:19] LABS: BUN Creatinine Ratio 28.4 (10-20); Calcium 9.9 mg/dl (8.5-10.1); Creatinine Clr Calc Pharmacy 85.8 ml/min; Est GFR (African American) 97.8 ml/min; Est GFR (Non-African American) 84.4 ml/min; Potassium 3.8 mmol/L (3.5-5.1)
[2022-07-28] MEDS: FAMOTIDINE 40 MG TABLET PO SCH (10:52)
--- NOTE | 2022-07-28 11:52 | XCELERA ---
[id number]
--- NOTE | 2022-07-28 13:01 | Discharge Summary ---
Date of Service July 28, 2022 Admission HPI Per Admitting Provider This is a 67-year-old female with a history of cutaneous SLE, GERD, hypercholesteremia who presented to [facility] for evaluation of chest pain. Patient says that she has a longstanding history of GERD and normally it presents with reflux and chest pressure; however, it is normally relieved with drinking a small amount of water. She says that she has been off her PPIs at the direction of her PCP through the holidayswhere she endorses eating a lot more foods that typically precipitate her GERD. She restarted her Protonix at the end of May/beginning of June, however had a flare of her cutaneous lupuswhich is still ongoing. She has intermittently tried taking Pepcid, but has not been doing so consistently. She says that she woke up the morning of admission with substernal chest pressure, "like somebody was sitting on my chest. "She said it radiated towards both the left and right side. She went to go on her normal walk, which did not make the pain worse. She did notice however that her heart rate was quite fast. She endorsed feeling some palpitations, but mostly realized that by looking at her smart watch. As the day went on, the pressure did not get better. Out of concern for something cardiac in nature, she did report to the ED for further evaluation. She is physically active and does not get chest pain with walking around. She denies any smoking history. She is not on any other meds then an occasional Pepsid. She tells me that she has been extensively worked up for the chest discomfort in the past when she was living in [place] before it was definitively called GERD relatedshe says that she had a stress test around 2018 which was negative. She said her last EGD was in 2017. In the ER, patient was found to be mildly hypertensive at 140/80, heart rate 95. Saturating well on room air. Admission labs revealing leukopenia 3.5. Chemistries demonstrating mild hypokalemia 3.4. Her high-sensitivity troponin returned at 4.3. Her CTA Chest (STAT-Rad read) did NOT demonstrate, per radiologist, aortopathy, PE, or pericardial process. Her ECG did not demonstrate acute repolarization abnormalities. Principal Diagnosis atypical chest pain Discharge Exam Head and ENT no thyroid enlargement trachea midline Cardiovascular S1-S2 are normal no S3 Lungs bilateral air entry fair no wheezing Abdomen soft nondistended positive bowel sounds no rebound tenderness Extremity shows trace edema Neurologically no focal deficits Skin shows no rash no cyanosis Discharge Data Allergies Allergy/AdvReac Type Severity Reaction Status Date / Time hydromorphone [From Dilaudid] Allergy Mild Nausea Verified 07/26/22 22:38 pantoprazole [From Protonix] Allergy Rash Verified 07/26/22 22:38 morphine AdvReac Vomiting Verified 07/26/22 22:38 Consultations 07/26/22 21:49 ED Decision to Admit Stat 07/27/22 13:28 Consult Cardiology Routine Ordered Studies 07/26/22 20:45 CT angio chest PE protocol Urgent Hospital Course (1) Chest pain: This is a 67-year-old female with a history of cutaneous SLE, GERD, hypercholesteremia who presented to [facility] for evaluation of chest pain. Chest Pain - Acute-onset but persistent and xwa-glhrxqlqmgzg-cvzbjth chest pressure similar to previous GERD flares that began morning of admission - Work-up as follows: - Admission hs-Trop at 4.3 --> repeat pending - CTA Chest (STAT RAD): No dissection, PE, pericardial process - ECG without conduction abnormalities - Physical exam: Mild TTP along the LEFT ribs (h/o rib fracture in April) - HEART Score: 3 (age, HLD as RF) -- low risk of MACE - Reported negative exercise stress test in 2019 - Based on the w/u described above, chest pain seems noncardiac in nature. Strongly suspect this is related to her underlying and known dyspepsia/GERD and possibly a component of esophageal spasms. No e/o PE, AoD on imaging. - A1c and lipid profile to be run in the AM - Dyspepsia regimen: Maalox, Famotidine 40mg daily TABITHA ; avoid PPIs until seen by Site Engineer given ongoing concern for relation to her cutaneous lupus - Recommend repeat EGD as outpatient and establishing w/ GI given refractory GERD symptoms, consideration of esophageal manometry (2) Subacute cutaneous lupus erythematosus: Cutaneous Lupus - Active flare appreciated on exam. Biopsy confirmed, per patient. - Not on maintenance medications. Recommended establishing with Dermatology as outpatient - Hold PPIs out of concern for relationship to flare (3) GERD (gastroesophageal reflux disease): GERD - See above. Recommend repeat EGD and establishing with GI as outpatient - Famotidine 40mg daily, Maalox PRN Plan Stress echo reviewed with steel inspector and is negative Total Time Total Time Spent Total Time Spent (In Minutes): 25 Discharge Plan Discharge Items Patient Disposition: Home - Self-Care Reason For Visit: CHEST PAIN Discharge Diagnosis: atypical chest pain Activity: Per Instructions section Non-emergency contact: Primary Care Provider and Unit Clerk Call non-emergency contact if: your symptoms worsen Follow-up/Referrals: Ankur Deluna MD [Primary Care Provider] - Diet: Heart Healthy Addtl Attending Provider Instructions: f/u pcp - 1 week Addtl Sky Line Yarder Provider Instructions: take OTC aspirin 81 mg daiy with food daily for primary prevention after d/w with your PCP Pending Studies at Discharge: No Stand-Alone Forms: My [employer], Smoking Cessation Medications and DC Order Prescriptions: Continued loratadine 10 mg tablet 10 mg PO DAILY PRN (Reason: allergies) multivitamin Tablet 1 tab PO DAILY ascorbic acid (vitamin C) 500 mg tablet 500 mg PO DAILY cholecalciferol (vitamin D3) 50 mcg (2,000 unit) capsule 50 mcg PO DAILY mecobalamin (vitamin B12) 5,000 mcg tablet,disintegrating 5,000 mcg PO DAILY triamcinolone acetonide 0.1 % cream 1 applic TOPICAL BID Rx Instructions: apply a thin layer to affected area twice a day Discharge Orders: Discharge Order (Routine); Ordered 07/28/22 Ordered By: Richard Vieira Admission Data Admit Date/Time: 07/26/22 22:32 Attending Provider: Richard Vieira Admit Provider: Chu Paz Primary Care Provider: Ankur Deluna Other Providers: Flaca Meier ; Vinnie Molina ; Ghanshyam Ballard ; Marty Jackson ; Alonso Ramsay ; Jaylen Rodriguez ; Lamont Jimenez ; Hilton Eddy Jr ; García Sparks ; Yesica Mccall ; Amanda Aguirre ; Roberto Bellamy ; James Mcpherson ; Vignesh Nolasco ; Shala Lane ; Cici Carlin ; Juan Malhotra ; Fermin Reddy ; Luis Armando Maya ; Jaylen David V. Coding Level of Care Code HOSP INP/OBS DISCH 30 MIN/LESS Diagnoses Chest pain R07.9 Chest pain type: unspecified Subacute cutaneous lupus erythematosus L93.1 GERD (gastroesophageal reflux disease) K21.9
== END 2022-07-28 14:19 | disposition home or self-care (01) ==
LOC: ED 17:42 → EDINP 17:42 → SUATTDRO 22:32 → 2W 23:21